=== PATIENT | female | born 1990 | race Caucasian/White ===

== ENCOUNTER 2017-07-06 18:26 | Emergency (ER) | payer MEDICAID ==
[2017-07-06] MEDS: SOD CHLORIDE 0.9% 1,000 ML IV ×2 (21:15→22:56)
[2017-07-06] MEDS: METOCLOPRAMIDE 10 MG INJ IV (21:16)
[2017-07-06] MEDS: FAMOTIDINE 20 MG INJ IV (21:16)
[2017-07-06] MEDS: DIPHENHYDRAMINE 50 MG INJ IV (21:16)
[2017-07-06 21:26] LABS: ADD MAN DIFF? NO
[2017-07-06 21:31] LABS: ADD UMIC NO; UR ASCORBIC ACID NEGATIVE (NEGATIVE); UR BILIRUBIN (Dip) NEGATIVE (NEGATIVE); UR BLOOD (Dip) NEGATIVE (NEGATIVE); UR CLARITY CLEAR (CLEAR); UR COLOR YELLOW (YELLOW); UR GLUCOSE (Dip) NEGATIVE (NEGATIVE); UR KETONES (Dip) NEGATIVE (NEGATIVE); UR LEUKOCYTE ESTERASE (Dip) NEGATIVE Leu/ul (NEGATIVE); UR NITRITE (Dip) NEGATIVE (NEGATIVE); UR SPECIFIC GRAVITY (Dip) 1.024 (1.003-1.030); UR TOTAL PROTEIN (Dip) NEGATIVE (NEGATIVE); UR UROBILINOGEN (Dip) NEGATIVE (NEGATIVE)
[2017-07-06 21:36] LABS: WHITE BLOOD COUNT 8.9 10^3/ul (4.8-10.8)
[2017-07-06 21:36] LABS: BASOPHILS % 0.5 % (0.0-2.0); EOSINOPHILS # 0.2 10^3/ul (0.0-0.5); HEMATOCRIT 39.8 % (37.0-47.0); HEMOGLOBIN 13.3 g/dl (12.0-16.0); LYMPHOCYTES # 2.7 10^3/ul (0.8-2.9); LYMPHOCYTES % 29.8 % (15.0-51.0); MEAN CORPUSCULAR HGB CONC 33.4 g/dl (32.0-37.0); MEAN CORPUSCULAR VOLUME 89.6 fl (82.0-101.0); MEAN PLATELET VOLUME 11.4 fl (7.4-10.4); MONOCYTE # 0.6 10^3/ul (0.3-0.9); NEUTROPHIL # 5.3 10^3/ul (1.6-7.5); NEUTROPHILS % 60.1 % (39.0-77.0); PLATELET COUNT 191 10^3/UL (140-415); RED BLOOD COUNT 4.44 10^6/ul (4.20-5.40); RED CELL DISTRIBUTION WIDTH 12.8 % (11.5-14.5)
[2017-07-06 22:00] LABS: ALANINE AMINOTRANSFERASE 33 IU/L (13-69); ALBUMIN 4.1 g/dl (3.3-4.9); ALBUMIN/GLOBULIN RATIO 1.46; ALKALINE PHOSPHATASE 43 IU/L (42-121); ANION GAP 13 (8-16); ASPARTATE AMINO TRANSFERASE 17 IU/L (15-46); BLOOD UREA NITROGEN 12 mg/dl (7-20); CALCIUM 9.4 mg/dl (8.4-10.2); CARBON DIOXIDE 24 mmol/L (21-31); CHLORIDE 106 mmol/L (97-110); CREATININE 0.62 mg/dl (0.44-1.00); GLUCOSE 92 mg/dl (70-220); LIPASE 118 U/L (23-300); POTASSIUM 4.2 mmol/L (3.5-5.1); SODIUM 139 mmol/L (135-144); TOTAL PROTEIN 6.9 g/dl (6.1-8.1)
== END 2017-07-07 00:18 | disposition home or self-care (01) ==
LOC: FTE 07-07 00:18
DX: O21.0 Mild hyperemesis gravidarum (principal); Z3A.12 12 weeks gestation of pregnancy
CPT/HCPCS: 80053; 81003; 83690; 84702; 85025; 96374; 96375; 99284-25

== ENCOUNTER 2018-01-12 21:54 | Outpatient (CLI) | payer MEDICAID ==
[2018-01-12 23:06] LABS: ADD UMIC YES; UR ASCORBIC ACID NEGATIVE (NEGATIVE); UR BACTERIA FEW /HPF (NONE SEEN); UR BILIRUBIN (Dip) NEGATIVE (NEGATIVE); UR BLOOD (Dip) NEGATIVE (NEGATIVE); UR CLARITY SLIGHTLY CLOUDY (CLEAR); UR COLOR YELLOW (YELLOW); UR GLUCOSE (Dip) NEGATIVE (NEGATIVE); UR KETONES (Dip) TRACE mg/dL (NEGATIVE); UR LEUKOCYTE ESTERASE (Dip) 1+ Leu/ul (NEGATIVE); UR MUCUS FEW /HPF (NONE SEEN); UR NITRITE (Dip) NEGATIVE (NEGATIVE); UR RBC 1 /HPF (0-5); UR SPECIFIC GRAVITY (Dip) 1.017 (1.003-1.030); UR SQUAMOUS EPITHELIAL CELL MODERATE /HPF (FEW); UR TOTAL PROTEIN (Dip) NEGATIVE (NEGATIVE); UR UROBILINOGEN (Dip) NEGATIVE (NEGATIVE); UR WBC 3 /HPF (0-5)
[2018-01-13 00:43] LABS: RUPTURE FETAL MEMBRANES NEGATIVE (NEGATIVE)
== END 2018-01-13 01:19 | disposition home or self-care (01) ==
LOC: OBT 21:54 → L-D 21:57
DX: O46.8X3 Other antepartum hemorrhage, third trimester (principal); Z3A.39 39 weeks gestation of pregnancy
CPT/HCPCS: 76815; 76818; 81001; 84112

== ENCOUNTER 2018-01-17 09:11 | Inpatient (IN) | payer MEDICAID ==
[2018-01-17] MEDS ORDERED: CARBOPROST 250 MCG INJ IM ×2 (10:00→20:30)
[2018-01-17] MEDS ORDERED: LIDOCAINE 1% (MPF) 30 ML INJ INJ (10:00)
[2018-01-17] MEDS: LACTATED RINGER'S 1,000 ML IV* ×2 (10:00→20:18)
[2018-01-17] MEDS ORDERED: BUTORPHANOL 2 MG INJ IV (10:00)
[2018-01-17] MEDS ORDERED: IBUPROFEN 600 MG TAB PO (10:00)
[2018-01-17] MEDS ORDERED: METHYLERGONOVINE 0.2 MG INJ IM ×2 (10:00→20:30)
[2018-01-17] MEDS ORDERED: OXYTOCIN 30 UNITS/LR 500 ML IV (10:00)
[2018-01-17] MEDS ORDERED: MISOPROSTOL 200 MCG TAB PR ×2 (10:00→20:30)
[2018-01-17 10:04] LABS: ADD MAN DIFF? NO
[2018-01-17] MEDS: AMPICILLIN 2 GM/NS (PMX) 100 ML IV (10:05)
[2018-01-17 10:09] LABS: WHITE BLOOD COUNT 7.5 10^3/ul (4.8-10.8)
[2018-01-17 10:09] LABS: BASOPHILS % 0.5 % (0.0-2.0); EOSINOPHILS # 0.1 10^3/ul (0.0-0.5); EOSINOPHILS % 0.8 % (0.0-7.0); HEMATOCRIT 38.8 % (37.0-47.0); HEMOGLOBIN 13.2 g/dl (12.0-16.0); LYMPHOCYTES # 1.9 10^3/ul (0.8-2.9); LYMPHOCYTES % 25.6 % (15.0-51.0); MEAN CORPUSCULAR HEMOGLOBIN 31.5 pg (29.0-33.0); MEAN CORPUSCULAR VOLUME 92.6 fl (82.0-101.0); MEAN PLATELET VOLUME 11.8 fl (7.4-10.4); MONOCYTE # 0.6 10^3/ul (0.3-0.9); NEUTROPHIL # 4.8 10^3/ul (1.6-7.5); NEUTROPHILS % 64.3 % (39.0-77.0); PLATELET COUNT 151 10^3/UL (140-415); RED BLOOD COUNT 4.19 10^6/ul (4.20-5.40); RED CELL DISTRIBUTION WIDTH 13.1 % (11.5-14.5)
[2018-01-17 10:28] LABS: INR 0.89; PROTIME 12.1 Sec (11.9-14.9); PT RATIO 0.9
[2018-01-17 10:29] LABS: PARTIAL THROMBOPLASTIN TIME 28.4 Sec (25.0-35.0)
[2018-01-17] MEDS: OXYTOCIN 30 UNITS/LR 500 ML IV ×4 (10:50→23:16)
[2018-01-17] MEDS: LACTATED RINGER'S 1,000 ML IV (11:09)
[2018-01-17 11:15] LABS: HEPATITIS B SURFACE ANTIGEN NEGATIVE (NEGATIVE)
[2018-01-17] MEDS ORDERED: FENTAnyl 2MCG/ML-ROPIV 0.2% 100 ML (11:21)
[2018-01-17] MEDS ORDERED: NALOXONE (0.4 MG/ML) INJ IV (11:30)
[2018-01-17] MEDS ORDERED: ONDANSETRON 4 MG INJ IV ×2 (11:30→20:30)
[2018-01-17] MEDS ORDERED: DIPHENHYDRAMINE 50 MG INJ IV ×2 (11:30→20:30)
[2018-01-17] MEDS ORDERED: TRIMETHOBENZAMIDE 100 MG/ML VIAL IM (11:30)
[2018-01-17] MEDS: FENTAnyl 2MCG/ML-ROPIV 0.2% 100 ML BAG EPI (12:09)
[2018-01-17] MEDS: AMPICILLIN 1 GM/NS (PMX) 50 ML IV ×2 (14:07→17:52)
[2018-01-17] MEDS: VALACYCLOVIR 500 MG TAB PO (14:32)
[2018-01-17] MEDS: MINERAL OIL LIGHT 10 ML VIAL TOP (18:17)
[2018-01-17 19:43] LABS: RAPID PLASMA REAGIN NONREACTIVE (NR)
[2018-01-17] MEDS: DEXTROSE 5%-LR 1,000 ML IV (20:18)
[2018-01-17] MEDS ORDERED: ACETAMINOPHEN 325 MG TAB PO (20:30)
[2018-01-17] MEDS ORDERED: ZOLPIDEM 5 MG TAB PO (20:30)
[2018-01-17] MEDS ORDERED: DIBUCAINE 1% 30 GM OINT PR (20:30)
[2018-01-17] MEDS: HYDROCODONE/APAP (5/325) TAB NGT (21:45)
[2018-01-17] MEDS: BENZOCAINE 20% 56 ML SPRAY TOP (21:45)
[2018-01-17] MEDS: WITCH HAZEL/GLYCERIN PAD PR (21:45)
[2018-01-18] MEDS: IBUPROFEN 600 MG TAB PO ×5 (00:32→23:47)
[2018-01-18] MEDS: DEXTROSE 5%-LR 1,000 ML IV (04:18)
[2018-01-18] MEDS: LACTATED RINGER'S 1,000 ML IV* (04:18)
[2018-01-18] MEDS: HYDROCODONE/APAP (5/325) TAB NGT (08:36)
[2018-01-18 09:09] LABS: ADD MAN DIFF? NO
[2018-01-18 09:11] LABS: BASOPHILS % 0.3 % (0.0-2.0); EOSINOPHILS # 0.1 10^3/ul (0.0-0.5); EOSINOPHILS % 0.8 % (0.0-7.0); HEMOGLOBIN 13.1 g/dl (12.0-16.0); LYMPHOCYTES # 1.9 10^3/ul (0.8-2.9); LYMPHOCYTES % 16.2 % (15.0-51.0); MEAN CORPUSCULAR HEMOGLOBIN 31.3 pg (29.0-33.0); MEAN CORPUSCULAR HGB CONC 32.8 g/dl (32.0-37.0); MEAN CORPUSCULAR VOLUME 95.7 fl (82.0-101.0); MEAN PLATELET VOLUME 11.8 fl (7.4-10.4); MONOCYTE # 0.9 10^3/ul (0.3-0.9); MONOCYTES % 8.2 % (0.0-11.0); NEUTROPHIL # 8.5 10^3/ul (1.6-7.5); NEUTROPHILS % 73.7 % (39.0-77.0); PLATELET COUNT 132 10^3/UL (140-415); RED BLOOD COUNT 4.18 10^6/ul (4.20-5.40); RED CELL DISTRIBUTION WIDTH 13.2 % (11.5-14.5)
[2018-01-18 09:11] LABS: WHITE BLOOD COUNT 11.5 10^3/ul (4.8-10.8)
[2018-01-18] MEDS: MAGNESIUM HYDROXIDE 30ML CUP PO (22:06)
[2018-01-18] MEDS: SENNA/DOCUSATE NA (8.6MG/50MG) TAB PO (22:06)
[2018-01-18] MEDS: LANOLIN 7 GM TUBE TOP (22:06)
[2018-01-19] MEDS: IBUPROFEN 600 MG TAB PO ×2 (05:26→11:34)
[2018-01-19] MEDS: MEASLES,MUMPS,RUBELLA VACCINE INJ SC* (07:17)
[2018-01-19] MEDS: MAGNESIUM HYDROXIDE 30ML CUP PO (08:54)
[2018-01-19] MEDS: SENNA/DOCUSATE NA (8.6MG/50MG) TAB PO (08:54)
[2018-01-19] MEDS: DIPHTH/TET/ACEL PERTUSS (ADULT) 0.5 ML VIAL IM* (11:34)
== END 2018-01-19 13:45 | disposition home or self-care (01) | DRG 775 ==
LOC: L-D 09:11 → PP1 21:27
PROVIDERS: Obstetrics & Gynecology
PROC: 10E0XZZ Delivery of Products of Conception, External Approach (ICD-10-PCS; principal; 2018-01-17 08:00)
PROC: 0UQGXZZ Repair Vagina, External Approach (ICD-10-PCS; 2018-01-17 08:00)
PROC: 3E033VJ Introduction of Other Hormone into Peripheral Vein, Percutaneous Approach (ICD-10-PCS; 2018-01-17 08:00)
DX: O48.0 Post-term pregnancy (principal); O71.4 Obstetric high vaginal laceration alone; Z3A.40 40 weeks gestation of pregnancy; Z37.0 Single live birth
CPT/HCPCS: 62319; 76815; 85025; 85610; 85730; 86592; 86850; 86900; 86901; 87340; 99464